=== PATIENT | male | born 1945 | race Caucasian/White ===

== ENCOUNTER 2023-01-18 06:00 | Outpatient (RCR) | payer MEDICARE, SELFPAY | END 2023-02-04 23:59 | disposition home or self-care (01) | LOC: MST 06:00 | PROVIDERS: Visit Provider Physical Medicine & Rehabilitation | DX: R13.10 Dysphagia, unspecified (principal); F80.89 Other developmental disorders of speech and language | CPT/HCPCS: 92507; 92523 ==

== ENCOUNTER 2023-03-10 18:02 | Emergency (ER) | payer MEDICARE, SELFPAY ==
[2023-03-10 18:45] VITALS: BP 143/78; PULSE 84; RESP 16; TEMP 38.2; O2SAT 99; BMI 20.2
[2023-03-10 19:29] VITALS: BP 166/83; PULSE 93; RESP 16; O2SAT 98
--- NOTE | 2023-03-10 19:59 | XRR_ITS ---
PROCEDURE INFORMATION: Exam: XR Chest Exam date and time: 03/10/2023 8:14 PM Age: 78 years old Clinical indication: Fever; Additional info: Fever, AMS TECHNIQUE: Imaging protocol: Radiologic exam of the chest. Views: 1 view. COMPARISON: No relevant prior studies available. FINDINGS: Tubes, catheters and devices: Clips in the left neck. Lungs: Shallow inspiration with crowding. Atelectasis and coarse interstitial opacities in the lung bases. No consolidation. Pleural spaces: Unremarkable. No pleural effusion. No pneumothorax. Heart/Mediastinum: Unremarkable. No cardiomegaly. Diaphragm: Elevation of the left diaphragm. Bones/joints: Scoliosis. No visible fracture. Right rotator cuff arthropathy. XR/XR chest 1V portable [id number] IMPRESSION: Coarse interstitial opacities in the lung bases could relate to parenchymal crowding and atelectasis. Infectious bronchiolitis or mild edema is not excluded.
[2023-03-10 20:00] LABS: Urine Appearance Clear (CLEAR); Urine Color Yellow (Yellow); pH Urine 6 (5-7)
[2023-03-10 20:01] LABS: Add Urine Culture? No; Add Urine Microscopic? YES; Amorphous Sediment Urine 1+ /hpf; Bilirubin Urine Neg (Negative); Blood Urine 2+ (Negative); Glucose Urine UA Norm (Normal); Ketones Urine 1+ (Negative); Leukocyte Esterase Urine Trace (Negative); Mucus Urine 1+ /hpf; Nitrate Urine Negative (Negative); Protein Urine Trace (Negative); RBC Urine RARE /hpf (0-2); Squamous Epithelial Cell Urine RARE /hpf (0-5); Urobilinogen Urine Neg (Negative); WBC Urine RARE /hpf (0-5)
[2023-03-10 20:41] LABS: Basophils % 0.3 %; Lymphocytes # 0.6 10^3/uL (0.8-4.8); Mean Corpuscular Hemoglobin 27.7 pg (27-33); Mean Corpuscular Volume 86.5 fl (82-101); Mean Platelet Volume 8.9 fL (7.4-10.4); Monocytes # 0.6 10^3/uL (0.2-0.9); Monocytes % 19.9 %; Neutrophils # 1.65 10^3/uL (1.8-7.7); Neutrophils % 57.8 %; Nucleated Red Blood Cells % 0 %; Platelet Count 36 10^3/cmm (157-399); Red Cell Distribution Width 14.1 % (12.1-15.1); White Blood Count 2.86 10^3/uL (3.29-11.43)
[2023-03-10 20:58] LABS: Alanine Aminotransferase 22 U/L (0-41); Albumin Level 3.9 g/dL (3.5-5.2); Alkaline Phosphatase 44 U/L (40-130); Anion Gap 14.6 (5-19); Aspartate Amino Transferase 27 U/L (0-40); Blood Urea Nitrogen 17 mg/dL (8-23); C Reactive Protein 50.9 mg/L (0.0-4.9); Calcium 8.8 mg/dL (8.5-10.5); Carbon Dioxide 25 mmol/L (22-29); Chloride 103 mmol/L (98-107); Globulin 2.3 g/dL (1.3-4.6); Glucose 99 mg/dL (65-115); Lactic Sepsis W/Reflex 1.6 mmol/L (0.5-2.2); Osmolality Calculated 288 mOsm/kg (285-295); Potassium 4.6 mmol/L (3.5-5.1); Sodium 138 mmol/L (136-145); Total Bilirubin 0.6 mg/dL (0.15-1.2); Total Protein 6.2 g/dL (6.6-8.7)
[2023-03-10] MEDS: divalproex ER 500 mg Tablet (24H) PO (21:06)
[2023-03-10] MEDS: sodium chloride 0.9% 1,000 ML 999 ML IV (21:06)
[2023-03-10] MEDS: levETIRAcetam 500 mg Tablet 1000 MG PO (21:06)
[2023-03-10 21:07] VITALS: BP 131/76; PULSE 96; RESP 16; O2SAT 94
[2023-03-10 22:01] VITALS: BP 152/66; PULSE 90; RESP 16; O2SAT 90
[2023-03-10] MEDS: azithromycin 250 mg Tablet 500 MG PO (22:02)
[2023-03-10] MEDS: cefdinir 300 MG CAPSULE PO (22:02)
[2023-03-10] MEDS: acetaminophen 500 mg Tablet 1000 MG PO (22:02)
[2023-03-10 22:22] LABS: Valproic Acid Level 132.5 ug/mL (50-100)
--- NOTE | 2023-03-11 05:10 | W.ED.GENADLT ---
HPI - General Adult General: Chief complaint: General Medical Stated complaint: Fever\Seizures in December\Unsteady Time Seen by Provider: 03/10/23 19:23 Source: patient and family History of Present Illness: 78-year-old male gentleman with a 103 fever at home evidently. He was sent here by his doctor. He has a history of dementia, and notes that he has been much more confused today. He seemed unsteady on his feet to some degree. She notes that he is shaky. He was diagnosed with seizures in December, and has been on Keppra and valproic acid since that time. No specific symptoms related to the fever. The consideration was urinary tract infection by his doctor. Onset (ago): hour(s) Associated symptoms: Deny chest pain, dyspnea, headache(s) or rash Review of Systems Const: Reports: fever(s), chills, body aches and change in appetite ENMT: Denies: throat pain Card: Denies: chest pain Resp: Denies: dyspnea, productive cough or non-productive cough GI: Denies: abdominal pain or dysphagia Skin/Breast: Denies: rash Neuro: Denies: headache(s) Physical Exam HENMT: COMMON NORMALS: normocephalic, atraumatic and Normal external nose present HEAD & SCALP: normocephalic and atraumatic FACE & SINUS: normal facial exam and face symmetric NOSE: Normal external nose present and Normal nares present MOUTH: Normal oral and palatal mucosa present THROAT: posterior oropharynx normal Eye: COMMON NORMALS: Equal, round and reactive pupils present, EOMs intact bilaterally and conjunctivae normal CONJUNCTIVA: Yes conjunctivae normal PUPIL: Yes Equal, round and reactive pupils present Neck/C-Spine: GENERAL: Yes trachea midline and No tender Chest: CHEST: Yes Symmetrical chest wall rise Resp: COMMON NORMALS: normal respiratory effort EFFORT & INSPECTION: Yes symmetric chest movement Cardio: COMMON NORMALS: regular rate and regular rhythm RATE: regular rate RHYTHM: regular rhythm GI: COMMON NORMALS: Normal to inspection, nondistended, normoactive bowel sounds present and non-tender Neuro: NANCY COMA SCALE: document GCS findings [place] coma scale eye opening: Spontaneous [place] coma scale verbal response: Confused [place] coma scale motor response: Obey commands Nancy coma scale total score: 14 Course Vital Signs: Vital signs: Vital Signs Temperature 100.8 F H 03/10/23 18:45 Pulse Rate 90 03/10/23 22:01 Respiratory Rate 16 03/10/23 22:01 Blood Pressure 152/66 03/10/23 22:01 Pulse Oximetry 90 03/10/23 22:01 Oxygen Delivery Me thod Room Air 03/10/23 18:45 MDM - General Adult Medical Decision Making The patient has bicytopenia and that is white count is 2.9, platelet count 36. BMP is normal. Lactic acid is normal at 1.6. CRP is elevated at 51. Urinalysis shows no urinary tract infection. Chest x-ray shows interstitial opacities in the lung bases. The patient and his have refused COVID swabs. Given the high fever, will elect to treat with antibiotics. Outpatient laboratory next week to repeat cell counts. Return for any worsening symptoms. Lab Data 03/10/23 20:25 03/10/23 20:25 Radiology Impressions Chest X-Ray 03/10/23 19:59 IMPRESSION: Coarse interstitial opacities in the lung bases could relate to parenchymal crowding and atelectasis. Infectious bronchiolitis or mild edema is not excluded. Laboratory Results WBC 2.86 10^3/uL (3.29-11.43) L 03/10/23 20:25 RBC 5.20 10^6/uL (3.85-5.65) 03/10/23 20:25 Hgb 14.40 g/dL (11.27-16.99) 03/10/23 20:25 Hct 45.0 % (37-53) 03/10/23 20:25 MCV 86.5 fl (82-101) 03/10/23 20:25 MCH 27.7 pg (27-33) 03/10/23 20:25 MCHC 32.0 g/dL (30-55) 03/10/23 20:25 RDW 14.1 % (12.1-15.1) 03/10/23 20:25 Plt Count 36 10^3/cmm (157-399) L 03/10/23 20:25 MPV 8.9 fL (7.4-10.4) 03/10/23 20:25 Neut % (Auto) 57.8 % 03/10/23 20:25 Lymph % (Auto) 22.0 % 03/10/23 20:25 [place] % (Auto) 19.9 % 03/10/23 20:25 Eos % (Auto) 0.0 % 03/10/23 20:25 Baso % (Auto) 0.3 % 03/10/23 20:25 Neut # (Auto) 1.65 10^3/uL (1.8-7.7) L 03/10/23 20:25 Lymph # (Auto) 0.6 10^3/uL (0.8-4.8) L 03/10/23 20:25 [place] # (Auto) 0.6 10^3/uL (0.2-0.9) 03/10/23 20:25 Eos # (Auto) 0.0 10^3/uL (0.0-0.8) 03/10/23 20:25 Baso # (Auto) 0.0 10^3/uL (0.0-0.1) 03/10/23 20:25 Nucleated RBC % (auto) 0 % 03/10/23 20:25 Nucleated RBCs # 0.0 /100WBC 03/10/23 20:25 Sodium 138 mmol/L (136-145) 03/10/23 20:25 Potassium 4.6 mmol/L (3.5-5.1) 03/10/23 20:25 Chloride 103 mmol/L (98-107) 03/10/23 20:25 Carbon Dioxide 25 mmol/L (22-29) 03/10/23 20:25 Anion Gap 14.6 (5-19) 03/10/23 20:25 BUN 17 mg/dL (8-23) 03/10/23 20:25 Creatinine 1.1 mg/dL (0.7-1.2) 03/10/23 20:25 GFR Calculation Not Reportable 03/10/23 20:25 Glucose 99 mg/dL (65-115) 03/10/23 20:25 Calculated Osmolality 288 mOsm/kg (285-295) 03/10/23 20:25 Lactic Acid 1.6 mmol/L (0.5-2.2) 03/10/23 20:25 Calcium 8.8 mg/dL (8.5-10.5) 03/10/23 20:25 Total Bilirubin 0.6 mg/dL (0.15-1.2) 03/10/23 20:25 AST 27 U/L (0-40) 03/10/23 20:25 ALT 22 U/L (0-41) 03/10/23 20:25 Alkaline Phosphatase 44 U/L (40-130) 03/10/23 20:25 C-Reactive Protein 50.9 mg/L (0.0-4.9) H 03/10/23 20:25 Total Protein 6.2 g/dL (6.6-8.7) L 03/10/23 20:25 Albumin 3.9 g/dL (3.5-5.2) 03/10/23 20:25 Globulin 2.3 g/dL (1.3-4.6) 03/10/23 20:25 Urine Color Yellow (Yellow) 03/10/23 18:44 Urine Appearance Clear (CLEAR) 03/10/23 18:44 Urine pH 6 (5-7) 03/10/23 18:44 Ur Specific [place] 1.010 (1.005-1.030) 03/10/23 18:44 Urine Protein Trace (Negative) 03/10/23 18:44 Urine Glucose (UA) Norm (Normal) 03/10/23 18:44 Urine Ketones 1+ (Negative) H 03/10/23 18:44 Urine Blood 2+ (Negative) H 03/10/23 18:44 Urine Nitrate Negative (Negative) 03/10/23 18:44 Urine Bilirubin Neg (Negative) 03/10/23 18:44 Urine Urobilinogen Neg mg/dL (Negative) 03/10/23 18:44 Ur Leukocyte Esterase Trace (Negative) H 03/10/23 18:44 Urine RBC Rare /hpf (0-2) 03/10/23 18:44 Urine WBC Rare /hpf (0-5) 03/10/23 18:44 Ur Squamous Epith Cells Rare /hpf (0-5) 03/10/23 18:44 Amorphous Sediment 1+ /hpf 03/10/23 18:44 Urine Bacteria None /hpf (NONE) 03/10/23 18:44 Urine Mucus 1+ /hpf 03/10/23 18:44 Valproic Acid 132.5 ug/mL (50-100) H 03/10/23 20:25 All radiology interpretation(s) finalized by discharge Discharge Plan Discharge Patient Disposition: Home Clinical Impression: Pneumonia, Leukopenia, Thrombocytopenia Condition: Stable Prescriptions: New Zithromax 250 mg tablet See Rx Instructions .ROUTE .COMPLEX Qty: 6 0RF Rx Instructions: For 250 mg dose pack: take 500 mg today (day 1), then 250 mg for 4 days (days 2-5) cefdinir 300 mg capsule 300 mg PO BID 7 Days Qty: 14 0RF Discharge Orders: Discharge ED (Routine); Ordered 03/10/23 Ordered By: Oz Ayala Patient Instructions: Thrombocytopenia (ED), Pneumonia (ED), Opioid Safety, Pain Management Activity Restrictions/Additional Instructions: Watch temperature closely. Stay hydrated. Medications as directed. Try to keep temperature to 100 degrees or below. Return for worsening mental status, lethargy despite treatment, fever despite 2-3 doses of antibiotics, other concerning symptoms. Follow-up with your doctor next week, as you will need blood rechecked to make sure your white blood cell count and platelet count are returning to normal. Coding Level of Care Code ED Database Marketing Specialist for Emmett Walker
== END 2023-03-10 22:09 | disposition home or self-care (01) ==
PROVIDERS: Physician Assistant; Emergency Provider Emergency Medicine
DX: J18.9 Pneumonia, unspecified organism (principal); D72.819 Decreased white blood cell count, unspecified; D69.6 Thrombocytopenia, unspecified
CPT/HCPCS: 71045; 80053; 80164; 81001; 83605; 85025; 86140; 87040; 99284; J7030; Q0144

== ENCOUNTER 2024-01-07 06:30 | Outpatient (RCR) | payer MEDICARE, SELFPAY | END 2024-02-05 23:59 | disposition home or self-care (01) | LOC: MST 06:30 | PROVIDERS: Visit Provider Internal Medicine | DX: F01.50 Vascular dementia, unspecified severity, without behavioral disturbance, psychotic disturbance, mood disturbance, and anxiety (principal) | CPT/HCPCS: 92523 ==

== ENCOUNTER 2024-02-06 06:00 | Outpatient (RCR) | payer MEDICARE, SELFPAY | END 2024-03-07 23:59 | disposition home or self-care (01) | LOC: MST 06:00 | PROVIDERS: Visit Provider Internal Medicine | DX: F03.90 Unspecified dementia, unspecified severity, without behavioral disturbance, psychotic disturbance, mood disturbance, and anxiety (principal) | CPT/HCPCS: 92507 ==